=== PATIENT | female | born 1980 | race Caucasian/White ===

== ENCOUNTER 2018-04-16 16:17 | Emergency (ER) | payer OTHER ==
[~2018-04-16] VITALS: Ht 175.3 cm; Wt 62.3 kg
[2018-04-16] MEDS ORDERED: ACETAMINOPHEN-O1 TAB PO (18:11)
[2018-04-16 18:19] VITALS: BP 120/80
== END 2018-04-16 18:18 | disposition home or self-care (01) ==
LOC: ED 16:17
DX: S93.491A Sprain of other ligament of right ankle, initial encounter (principal); X50.1XXA Overexertion from prolonged static or awkward postures, initial encounter; Y92.008 Other place in unspecified non-institutional (private) residence as the place of occurrence of the external cause; G57.61 Lesion of plantar nerve, right lower limb; Z88.5 Allergy status to narcotic agent; Z88.8 Allergy status to other drugs, medicaments and biological substances
CPT/HCPCS: J1885; L4386